=== PATIENT | male | born 1985 | race African-American/Black ===

== ENCOUNTER → 2020-10-14 | Outpatient (CLI) | payer OTHER ==
--- NOTE | 2020-10-14 17:17 | REP ---
INDICATION: LT HIP PAIN injury June 2019 in September 2019, pain COMPARISON: None. TECHNIQUE: Coronal T1, STIR through the pelvis, axial, coronal, sagittal T2 fat sat left hip. FINDINGS: The visualized osseous structures demonstrate no occult fracture. 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 There is no other bone marrow signal abnormality. There is no evidence of avascular necrosis. Labrum demonstrates no evidence of a tear. There is no paralabral cyst. Surrounding soft tissue structures demonstrate no abnormal signal. There is no joint effusion. The visualized intrapelvic structures are unremarkable. IMPRESSION: No MR evidence for a labral tear. 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 No other significant finding. <Electronically signed by Arnie Buckner > 10/14/20 [id number]
== END ==
LOC: M PLAIMG 15:05
PROVIDERS: ATTEND Nurse Practitioner Family
DX: M25.552 Pain in left hip (principal); M94.252 Chondromalacia, left hip